=== PATIENT | female | born 1975 ===

== ENCOUNTER → 2018-11-02 01:52 | Outpatient (REF) | payer SELFPAY ==
[2018-11-07 20:40] LABS: Mitogen-NIL 8.33 IU/mL; NIL 0.03 IU/mL; QuantiFERON TB NEGATIVE (Negative); TB1-NIL 0.01 IU/mL; TB2-NIL < 0.01 IU/mL
== END ==
LOC: LAB 01:52
PROVIDERS: Visit Provider Family Medicine
DX: Z11.1 Encounter for screening for respiratory tuberculosis (principal); Z11.3 Encounter for screening for infections with a predominantly sexual mode of transmission
CPT/HCPCS: 36415; 86480; 86780; 87591